=== PATIENT | female | born 1935 | race Caucasian/White ===

== ENCOUNTER → 2016-09-15 | Outpatient (CLI) | payer MEDICARE, OTHER ==
[~2016-09-15] MED LIST: ACTONEL PO; ADVAIR 1001 DISK W/D PO; ADVAIR 2501 DISK W/D PO; ALBUTEROL17 GM; HYDROCHLOROTH12.5 MG PO; LEVAQUIN750 MG PO; PREDNISONE PO; RECLAST 55 MG/100 M IV; ZESTORETIC 10/11 TAB PO; ZITHROMAX PO
--- NOTE | ~2016-09-15 | BD1 ---
[facility] A Service of [facility] RADIOLOGY TEXT RESULTS PATIENT: SOTERO YAN LOCATION: [facility] : 39 UNIT #: [id number] AGE: [address]: Mary Washington MD SEX: F ORDER DR: [id number] [address] [address] [id number] O MR#: [id number] Acc #: [id number] NAME: SOTERO YAN : 1935 SEX: F STUDY DATE/TIME: 09/15/2016 11:00 UNIT: SRAD ROOM: STUDY DESCRIPTION: Dexa Bone Dens 1+ Site Attending Physician: Mary Washington M.D. Referring Physician: Mary Washington M.D. Ordering Physician: Mary Washington M.D. Primary Care Physician: Mary Washington M.D. MEDICAL IMAGING REPORT This report is preliminary unless electronic signature is present. EXAM DXA scan 09/15/2016 HISTORY Status post menopause with no hormone replacement therapy. Osteopenia. Smoking history. FINDINGS Bone mineral density in the lumbar spine from L1-L4 is 0.861 g/cm2 which is 2.7 standard deviations below the mean when compared to the young adult reference population which is characteristic of osteoporosis. This is 0.8 standard deviations below the mean when compared to the age-matched population. Bone mineral density in the left femoral neck was 0.684 g/cm2 which is 2.5 standard deviations below the mean when compared to the young adult reference population which is characteristic of osteoporosis. This is 0.4 standard deviations below the mean when compared to the age-matched population. Bone mineral density in the right femoral neck was 0.618 g/cm2 which is 3 standard deviations below the mean when compared to the young adult reference population which is characteristic of osteoporosis. This is 0.9 standard deviations below the mean when compared to the age-matched population. IMPRESSION Bone mineral density in the lumbar spine and the hips bilaterally characteristic of osteoporosis. Dictated by... Binh Santana M.D. THIS IS AN ELECTRONICALLY VERIFIED REPORT [facility] A Service of [facility] RADIOLOGY TEXT RESULTS PATIENT: SOTERO YAN LOCATION: [facility] : 39 UNIT #: [id number] AGE: [address]: Mary Washington MD SEX: F ORDER DR: Binh Santana M.D. at 09/16/2016 7:35 AM KRT/pcl TD: 09/15/2016 16:10 JOB #: [id number] MEDICAL IMAGING REPORT Page 1 of 1
== END | disposition home or self-care (01) ==
LOC: SRAD 10:47
DX: Z13.820 Encounter for screening for osteoporosis (principal); Z78.0 Asymptomatic menopausal state
CPT/HCPCS: 77080

== ENCOUNTER → 2016-10-09 | Outpatient (CLI) | payer MEDICARE, OTHER ==
--- NOTE | ~2016-10-09 | MY30 ---
[facility] A Service of [facility] RADIOLOGY TEXT RESULTS PATIENT: SOTERO YAN LOCATION: [facility] : 39 UNIT #: [id number] AGE: [address]: Mary Washington MD SEX: F ORDER DR: [id number] [address] [address] [id number] O MR#: [id number] Acc #: [id number] NAME: SOTERO YAN : 1935 SEX: F STUDY DATE/TIME: 10/09/2016 13:21 UNIT: [facility] ROOM: STUDY DESCRIPTION: MY SCREEN DEVEN BILAT DIGITAL Attending Physician: Mary Washington M.D. Referring Physician: Mary Washington M.D. Ordering Physician: Mary Washington M.D. Primary Care Physician: Mary Washington M.D. MEDICAL IMAGING REPORT This report is preliminary unless electronic signature is present. EXAM Bilateral digital screening mammogram with CAD DATE 10/09/2016 HISTORY Benign left breast biopsy approximately 30 years ago. Family history of breast cancer in a sister. No personal history of breast cancer or current complaints. COMPARISON Bilateral screening mammogram 10/08/2015, 12/29/2013, 06/29/2012. FINDINGS CC and MLO views were obtained of each breast utilizing digital technique and reviewed with an FDA-approved CAD device. The breast parenchyma is predominately fatty replaced. 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 No new or suspicious nodule, architectural distortion or clustered microcalcification is identified. IMPRESSION 1. BIRADS category 2. Benign findings. Routine bilateral screening mammogram is recommended in 1 year. Patients over the age of 40 are entered into a reminder system with target due date for the next mammogram. A result letter will also be sent to the patient. BIRADS: 2, benign findings. [facility] A Service [facility] RADIOLOGY TEXT RESULTS PATIENT: SOTERO YAN LOCATION: [facility] : 39 UNIT #: [id number] AGE: [address]: Mary Washington MD SEX: F ORDER DR: Dictated by... Marlene Fitzpatrick M.D. THIS IS AN ELECTRONICALLY VERIFIED REPORT Marlene Fitzpatrick M.D. at 10/14/2016 3:26 PM CRUZ/jose TD: 10/10/2016 05:35 JOB #: [id number] MEDICAL IMAGING REPORT Page 1 of 1
== END | disposition home or self-care (01) ==
LOC: SMAM 12:43
DX: Z12.31 Encounter for screening mammogram for malignant neoplasm of breast (principal); Z80.3 Family history of malignant neoplasm of breast
CPT/HCPCS: G0202